=== PATIENT | female | born 1925 | race Caucasian/White ===

== ENCOUNTER 2017-01-02 11:19 | Emergency (ER) | payer MEDICARE ==
--- NOTE | 2017-01-14 08:25 | ER ---
ADMIT: 01/02/2017 RM/LOC: ER [facility] MR#: [id number] [address] [id number] [place] [address] Emergency Room Report SEX: F AGE: 89 : 1925 DATE: 01/02/2017 ADDENDUM: This patient comes to the ER because she fell from standing position and when she fell, she cut her right 3rd digit. She has a small laceration on the dorsal aspect of the digit right below the DIP joint. I am able to visualize the tendon, however, in flexion and extension, there are no lacerations to the tendon and no dysfunction to it. The area was infiltrated with lidocaine under sterile procedure. Six interrupted stitches using 5-0 Prolene was placed. Stitches removed in 7 days. Patient to follow up with her primary as needed. Please see my T-sheet. ASIYA Rollins / Manny Palomino MD / karenl JOB #: [id number] CC: Manny Palomino MD, Attending Physician Saeid Mancuso MD, Family Physician
[2017-03-08] MEDS ORDERED: LANOXIN DPS0.125 MG PO (18:15)
[2017-03-08] MEDS ORDERED: FEOSOL-DPS325 MG PO (18:15)
[2017-03-08] MEDS ORDERED: ASA CHILDREN'S81 MG PO (18:15)
[2017-03-08] MEDS ORDERED: CORDARONE DPS200 MG PO (18:15)
[2017-03-08] MEDS ORDERED: PRAVACHOL40 MG PO (18:16)
[2017-03-08] MEDS ORDERED: NEURONTIN DPS100 MG PO (18:16)
[2017-03-08] MEDS ORDERED: SYNTHROID DP0.088 MG PO (18:16)
[2017-03-08] MEDS ORDERED: OMEGA-3 DPS1000 MG PO (18:16)
[2017-03-08] MEDS ORDERED: MIRALAX PACKET17 GM PO (18:16)
[2017-03-08] MEDS ORDERED: LASIX DPS20 MG PO (18:16)
[2017-03-08] MEDS ORDERED: VASOTEC DPS5 MG PO (18:17)
[2017-03-08] MEDS ORDERED: ZOLOFT DPS50 MG PO (18:17)
[2017-03-08] MEDS ORDERED: TIAZAC180 MG PO (18:17)
[2017-03-08] MEDS ORDERED: THERA1 EACH PO (18:17)
[2017-03-08] MEDS ORDERED: COLACE-DPS100 MG PO (18:18)
[2017-03-08] MEDS ORDERED: MAALOX DPS30 ML PO (18:18)
[2017-03-08] MEDS ORDERED: DULERA 100/58.8 GM IH (18:18)
[2017-03-08] MEDS ORDERED: SPIRIVA18 MCG IH (18:18)
[2017-03-08] MEDS ORDERED: TYLENOL DP650 MG/20. PO (18:19)
[2017-03-08] MEDS ORDERED: TYLENOL-DPS650 MG PR (18:19)
[2017-03-08] MEDS ORDERED: TYLENOL DPS325 MG PO (18:19)
[2017-03-08] MEDS ORDERED: ZOFRAN4 MG PO (18:19)
[2017-03-08] MEDS ORDERED: NITROSTAT0.4 MG SL (18:20)
== END 2017-01-02 13:10 | disposition home or self-care (01) ==
LOC: ER 11:19
PROC: 0HQFXZZ Repair Right Hand Skin, External Approach (ICD-10-PCS; principal; 2017-01-02)
DX: S61.212A Laceration without foreign body of right middle finger without damage to nail, initial encounter (principal); J44.9 Chronic obstructive pulmonary disease, unspecified; Z88.2 Allergy status to sulfonamides; Z87.891 Personal history of nicotine dependence; W18.30XA Fall on same level, unspecified, initial encounter; Y92.009 Unspecified place in unspecified non-institutional (private) residence as the place of occurrence of the external cause